=== PATIENT | female | born 2000 | race Caucasian/White ===

== ENCOUNTER 2023-01-26 08:09 | Emergency (ER) | payer OTHER, SELFPAY ==
[2023-01-26 08:22] VITALS: BP 132/76; PULSE 108; RESP 18; TEMP 36.6; O2SAT 100
--- NOTE | 2023-01-26 08:26 | ED.GENADULT ---
HPI - General Adult General Chief complaint: Eye Problems Stated complaint: [place] eye/sore throat Time Seen by Provider: 01/26/23 08:26 Source: patient Mode of arrival: ambulatory Limitations: no limitations History of Present Illness HPI narrative: 22-year-old female presented for complaint of bilateral eye redness and irritation worsening over the past 3 days. She states symptoms started in the left eye, she started having symptoms in the right eye yesterday. Endorses redness, itching, and yellow drainage. Also reports mild right eyelid swelling. She denies foreign body sensation, photophobia, vision changes, headache, nausea, fevers or chills. She endorses her throat feels scratchy. Also states her children were recently treated for pinkeye. Taking aleve for symptoms. Related Data Home Medications Medication Instructions Recorded Confirmed escitalopram oxalate 5 mg tablet 5 mg PO DAILY 01/26/23 01/26/23 lamotrigine 100 mg tablet 100 mg PO DAILY 01/26/23 01/26/23 Allergies Allergy/AdvReac Type Severity Reaction Status Date / Time morphine Allergy Intermediate Hives Verified 01/26/23 08:27 Review of Systems Review of Systems: CONSTITUTIONAL: Denies body aches, fever, chills EYES:Endorses redness, drainage to both eyes; Denies FB sensation, photophobia visual changes ENT: Denies rhinorrhea, congestion, or otalgia. CARDIOVASCULAR: Denies chest pain, palpitations RESPIRATORY: Denies cough or dyspnea. GASTROINTESTINAL: Denies abdominal pain, nausea, vomiting, or diarrhea. SKIN: Denies rash, itching, or wounds. MUSCULOSKELETAL: Denies back pain, joint pain, or myalgia. NEUROLOGIC: Denies headache, numbness, tingling, or weakness. All systems reviewed & are unremarkable except as noted in HPI and below PMFSH Past Medical History Medical History (Updated 01/26/23 @ 08:37 by Angelica Narayan APRN) No pertinent past medical history Comments At time of signature, I have reviewed and agree with nursing past medical, surgical, social and family history unless otherwise noted. Please see nursing chart for further information. There is no relevant family history pertinent to the presenting complaint Exam Narrative: GENERAL: Well-appearing HEAD: Normocephalic, atraumatic. EYES: bilateral conjunctival injection Right >Left, mild right upper eye lid swelling/redness, moderate purulent drainage. PERRLA, EOMI. Lid eversion showed no foreign body ENT: Mucous membranes pink and moist. No rhinorrhea. TMs normal bilaterally. Throat normal tonsils absent. Uvula midline. CHEST: Clear to auscultation. HEART: Regular rate and rhythm. ABDOMEN: Soft, nontender, nondistended SKIN: Warm, dry, no rash. Normal skin turgor. NEURO: Alert and oriented x3 PSYCH: Normal affect. Course Course Emergency Course: Patient is aware of diagnosis, understands and agrees to treatment plan. Anticipatory guidance given. Patient agrees to follow-up as directed and is aware of reasons to seek care at the emergency department. Portions of this record may have been created with voice recognition software Level of Care: Express Care Visit Vital Signs Vital signs: Vital Signs Temperature 97.8 F 01/26/23 08:22 Pulse Rate 108 H 01/26/23 08:22 Respiratory Rate 18 01/26/23 08:22 Blood Pressure 132/76 01/26/23 08:22 Pulse Oximetry 100 01/26/23 08:22 Oxygen Delivery Room Air 01/26/23 08:22 Temperature 97.8 F 01/26/23 08:22 Pulse Rate 108 H 01/26/23 08:22 Respiratory Rate 18 01/26/23 08:22 Blood Pressure 132/76 01/26/23 08:22 Pulse Oximetry 100 01/26/23 08:22 Oxygen Delivery Room Air 01/26/23 08:22 Medical Decision Making MDM Narrative Medical decision making narrative: Discussed physical exam findings. Advised supportive measures and signs/symptoms to go to the ER. Pt is appropriate for outpt treatment and f/u. Differential Diagnosis Differential Diagnosis: allergic
== END 2023-01-26 08:35 | disposition home or self-care (01) ==
PROVIDERS: Emergency Provider Nurse Practitioner Family; PCP Nurse Practitioner Family
DX: H10.9 Unspecified conjunctivitis (principal); F41.9 Anxiety disorder, unspecified; F31.9 Bipolar disorder, unspecified
CPT/HCPCS: 99213; G0463

== ENCOUNTER 2024-05-04 14:30 | Emergency (ER) | payer OTHER, SELFPAY ==
[2024-05-04 14:36] VITALS: BP 122/72; PULSE 94; RESP 18; TEMP 37.2; O2SAT 100
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
== END 2024-05-04 14:58 | disposition home or self-care (01) ==
PROVIDERS: Emergency Provider Registered Nurse; PCP Nurse Practitioner Family
DX: H60.331 Swimmer's ear, right ear (principal); F17.290 Nicotine dependence, other tobacco product, uncomplicated
CPT/HCPCS: 99213; G0463

== ENCOUNTER 2024-07-16 17:05 | Emergency (ER) | payer OTHER, SELFPAY ==
[2024-07-16 17:10] VITALS: BP 129/68; PULSE 88; RESP 20; TEMP 36.8; O2SAT 100
--- NOTE | 2024-07-16 17:36 | ED_ITS ---
HPI - Skin/Abscess/Foreign Bdy General Chief complaint: Skin/Abscess/Foreign Body Stated complaint: Rash lower back and arms Source: patient, RN notes reviewed and old records reviewed Mode of arrival: ambulatory Limitations: no limitations History of Present Illness HPI narrative: 24 year old female who presents to [facility] care with complaints red raised irregular spots on her back, down her arms and few areas on her forehead noted today which she reports are not itching. Patient reports that she went to hr grandmothers home and did some laundry there and did use new laundry soap. Patient reports that no one else in household has this rash, no new foods, medications, or any new bath soaps or lotions. Patient denies any difficulty with her breathing or with swallowing. MD complaint: rash Onset (ago): day(s) (today) Severity: mild Treatments prior to arrival: none Related Data Allergies Allergy/AdvReac Type Severity Reaction Status Date / Time morphine Allergy Intermediate Hives Verified 05/04/24 14:37 Review of Systems Review of Systems: CONSTITUTIONAL: Denies fever, chills, or sweats. CARDIOVASCULAR: Denies chest pain, palpitations, or edema. RESPIRATORY: Denies cough or dyspnea. SKIN: Reports red spots on back, down her arms and some on forehead which she noted today that are not itchy MUSCULOSKELETAL: Denies joint pain or myalgia. NEUROLOGIC: Denies headache, numbness, or weakness. All systems reviewed & are unremarkable except as noted in HPI and below PMFSH Past Medical History Medical History No pertinent past medical history Surgical History Surgical History History of appendectomy History of tonsillectomy and adenoidectomy Social History Social History Smoking status: Current every day smoker Tobacco type: e-cigarettes/vaping Alcohol intake: current Alcohol use details: social Substance use: current Substance use type: marijuana Gender identity (if verbalized by the patient): Female Comments At time of signature, agree with nursing past medical, surgical, social and family history. There is no relevant family history pertinent to the presenting complaint Exam Narrative: GENERAL: Well-appearing, well-nourished, and in no acute distress. HEAD: Normocephalic, atraumatic. EYES: PERRLA, conjunctivae clear, and EOMI. ENT: Mucous membranes moist. Oropharynx without edema, erythema or lesions. NECK: Supple. No lymphadenopathy CHEST: Clear to auscultation. No respiratory distress.SAO2 100% on room air HEART: Regular rate and rhythm. SKIN: Warm, dry.? red raised grouped irregular rash to her back, down her arms and few on forehead, no itching or any pain to areas, no vesicles or any pustule formation NEURO:? Alert and oriented x3. PSYCH: Normal mood and affect Course Course Emergency Course: Patient is aware of diagnosis, understands and agrees to treatment plan.? Anticipatory guidance given.? Patient agrees to follow-up as directed and is aware of reasons to seek care at the emergency department. Portions of this record may have been created with voice recognition software Level of Care: Express Care Visit Vital Signs Vital signs: Vital Signs Temperature 36.8 C 07/16/24 17:10 Pulse Rate 88 07/16/24 17:10 Respiratory Rate 20 07/16/24 17:10 Blood Pressure 129/68 07/16/24 17:10 Pulse Oximetry 100 07/16/24 17:10 Oxygen Delivery Room Air 07/16/24 17:10 Temperature 36.8 C 07/16/24 17:10 Pulse Rate 88 07/16/24 17:10 Respiratory Rate 20 07/16/24 17:10 Blood Pressure 129/68 07/16/24 17:10 Pulse Oximetry 100 07/16/24 17:10 Oxygen Delivery Room Air 07/16/24 17:10 Reviewed MDM - Skin/Abscess/Foreign Bdy MDM Narrative Medical decision making narrative: Does not appear at this time to be erythema multiforme, bullous, SJS, TEN; no evidence at this time to suggest RMSF, endocarditis or Lyme disease; patient looks well, nontoxic and is tolerating oral intake; no neurologic signs or symptoms; no headache, photophobia or neck pain; afebrile; appropriate for initial outpatient treatment; discussed the importance of follow-up, patient agrees; question, viral exanthema, contact dermatitis, allergic dermatitis, eczema, urticaria, [ xx ]. No soft palate or uvula edema, no tongue, lip edema or other mucosal involvement, no respiratory compromise, no stridor, no wheezing, no wheezing, no history of syncope, no hypotension, no nausea, vomiting, or diarrhea.? Instructed patient to go to nearest ER immediately for any worsening symptoms including but not limited to: fever, spreading rash, pain, sore throat, headache, dizziness, chest pain, trouble breathing, or any symptoms concerning to the patient. Differential Diagnosis Differential diagnosis: Likely cellulitis, eczema and contact dermatitis Medical Records Attestation: I reviewed the patient's medical records. Critical Care Time Critical Care Time Critical Care Time: No Discharge Plan Discharge Clinical Impression: Contact dermatitis Patient Disposition: Home, Self-Care Condition: Stable Instructions: Antibiotic Form, Contact Dermatitis (ED) Additional Instructions: Cleanse skin rash areas with liquid Dial soap and apply triamcinolone ointment twice daily never apply ointment to the face watch for increasing infection--redness, swelling, drainage Tylenol or ibuprofen any fever pain follow up with PCP in 7-10 days for a wound check recheck if develop fever, chills, increasing symptom Go to the ER if your symptoms become worse of if ANY new symptoms develop Benadryl orally for any itching Prednisone taper take as prescribed If your symptoms persist, change or worsen significantly before you can contact your personal physician then please, without delay, go to the emergency department for further evaluation. Follow-up with PCP in 7-10 days or sooner if needed Follow up with PCP soon in regards to your blood pressure which is elevated above threshold for referral. Blood pressure above 120/80 may indicate pre- hypertension. Minimal elevation systolic 129/68 Prescriptions: New triamcinolone acetonide 0.1 % ointment 1 applic topical BID Qty: 80 0RF Rx Instructions: never use this ointment to face prednisone 20 mg tablet 20 mg PO BID Qty: 10 0RF Rx Instructions: take am and early pm No Action ciprofloxacin-dexamethasone 0.3-0.1 % drops,suspension 4 drp RIGHT EAR BID 7 Days Qty: 7.5 0RF Follow-up/Referrals: Re,Maritza Shen APN [Primary Care Provider] - Time of Disposition: 17:41 Quality [place]indy Coma Scale Eyes: Open Verbal: Oriented and Alert Motor: Follows Commands [place] Coma Total Score: 15
== END 2024-07-16 17:42 | disposition home or self-care (01) ==
PROVIDERS: Emergency Provider Registered Nurse; PCP Nurse Practitioner Family
DX: T49.2X1A Poisoning by local astringents and local detergents, accidental (unintentional), initial encounter (principal); L25.3 Unspecified contact dermatitis due to other chemical products; F17.290 Nicotine dependence, other tobacco product, uncomplicated; F12.90 Cannabis use, unspecified, uncomplicated
CPT/HCPCS: 99213; G0463

== ENCOUNTER 2025-05-07 14:41 | Emergency (ER) | payer OTHER, SELFPAY ==
--- OUTSIDE RECORDS SUMMARY | 2025-05-07 14:45 | XMS_ITS | Clinical Summary ---
Author Organization [facility] Address [address] [place] [address] Care Team Providers Care Skidder Name Role Phone Maritza Griamldo NP Primary Care Provider + [phone] Zachery Laughlin MD Unavailable [phone] Allergies Active Allergy Reactions Criticality Noted Date Comments Bee Pollen Hives Medium 07/11/2023 Morphine Hives Medium 01/02/2019 Penicillins Rash Medium 07/11/2023 Medications acetaminophen 500 mg capsuleIndications :Fever,Pain Take 1 capsule (500 mg total) by mouth every 6 (six) hours as needed for pain 90 tablet 12/03/19 21 Active ibuprofen (ADVIL,MOTRIN) 600 mg tabletIndications: Cramps,Pain Take 1 tablet (600 mg total) by mouth every 6 (six) hours as needed for pain 90 tablet 12/03/19 21 Active lamoTRIgine (LaMICtal) 25 mg tablet Take 4 tablets (100 mg total) by mouth daily 10/14/19 23 Active escitalopram (LEXAPRO) 5 mg tablet Take 1 tablet (5 mg total) by mouth daily Active ondansetron ODT (ZOFRAN-ODT) 8 mg disintegrating tabletIndications: Prevention of Post-Operative Nausea and Vomiting Take 1 tablet (8 mg total) by mouth every 8 (eight) hours as needed for nausea or vomiting 12 tablet 1 08/04/20 23 Active Additional Information Patient not taking.Reported on 12/16/2023 norgestimate-ethin yl estradioL (ORTHO-CYCLEN) 0.25-35 mg-mcg per tablet Take 1 tablet by mouth daily 28 tablet 3 12/16/19 24 Active Active Problems Problem Noted Date Diagnosed Date Allergic rhinitis 07/11/2023 Anxiety 07/11/2023 Contact dermatitis 07/11/2023 Dysuria 07/11/2023 Habit tic 07/11/2023 Migraine 07/11/2023 Mild recurrent major depression 07/11/2023 Obesity 07/11/2023 Secondary hypertriglyceridemia 07/11/2023 Vitamin D deficiency 07/11/2023 Overview (07/11/2023): cont daily 2000 units replacement Vulvovaginitis 07/11/2023 Ganglion cyst of wrist, left 07/11/2023 Bipolar II disorder 10/13/2022 Continuous cannabis dependence 10/13/2022 Anxiety and depression 05/15/2020 Overview (09/12/2020): - Discontinued Prozac with - Reports stable mood - plan for continued monitoring Nicotine use disorder 11/24/2019 Overview (05/15/2020): Discontinued e-cig 04/2020 Assessment & Plan (11/24/2019 8:55 PM HEALTHCARE MANAGER): Patient vapes. The dangers of vaping was discussed with patient and patient was advised to quit. Patient states she is cutting back. Marijuana abuse 11/24/2019 Overview (05/15/2020): Daily use. Reports discontinued 12/2019. Assessment & Plan (11/24/2019 8:55 PM HEALTHCARE MANAGER): Patient uses marijuana daily. Atopic dermatitis of face 11/28/2018 Tinea corporis 07/24/2018 Thoracic back pain 07/13/2017 Ganglion cyst 09/07/2016 Resolved Problems Problem Noted Date Diagnosed Date Resolved Date care following vaginal delivery 12/02/2020 01/22/2021 Overview (12/05/2020): # ID: Afebrile. No signs/symptoms of infection. #COVID-19: Other - COVID recovered # Heme: Delivery EBL 400 mL. -Gestational thrombocytopenia- platelets 119. -Rh negative: Both babies Rh negative, no indication for rhogam. -Delayed PPH: Team hemorrhage called evening of 12/03. BSUS with organized clot/tissue pressure at uterine fundus. Taken to OR for suction D&C. EBL 1300 pre-op and intra-op. S/p hemabate x1 intraop. Total EBL this admission: 1700cc. Labs trend: Hgb 11.6->8.3>7.9, plts 127->76>128, fibrinogen 457->251>265, nl PT/PTT. Bleeding stable this, asx, UOP adequate. # CV/Pulm: Gestational hypertension - Blood pressures well controlled on no medications. Asymptomatic, denies GARCIA/RUQ pain/vision changes. CBC/CMP WNL, UPC WNL. Consented for home BP monitoring. # GI/: Tolerating PO. Voiding spontaneously and adequately. # Pain: Controlled with above regimen. # Post DVT prophylaxis: The patient has the following MAJOR risk factors PPH (EBL >/=1000) requiring blood transfusion or procedure (D&C or IR) and none and the following MINOR risk factors BMI 30-39 and multiple gestation . enoxaparin 40 mg daily ordered for VTE prophylaxis. # MOC: s/p nexplanon placement # MOF: Formula feeding # Disposition: Follow up task sent to [facility] scheduling pool.Desires discharge home today Encounter for induction of labor 12/01/2020 01/22/2021 Overview (12/01/2020): 1. Induction of labor for DiDiTIUP/gHTN: Continue OT per protocol. S/p AROM@1430 2. FWB: Continuous monitoring. tracing category I 3. ID: HIV negative. GBS negative. Membrane Status: AROm@1430. 4. Indications for UDS: none. Verbal consent obtained for UDS: Not indicated 5. MOF: Plans to breastfeed. 6. MOC: Desires Nexplanon 7. Pain management: Desires epidural PRN. Will notify Anesthesia when ready. 8. Post DVT prophylaxis: The patient has the following MAJOR risk factors none and the following MINOR risk factors BMI 30-39 and multiple gestation . enoxaparin 40 mg daily will be ordered for VTE prophylaxis . 9. COVID Test Status: COVID recovered from October 12. Kevan TIUP - 11/27 scan vertex/vertex. A EFW 2505(13%), B EFW 2990 (56%), 16.2% discordance 11. gHTN - dx 11/25. On no meds currently. CBC/CMP wnl, UPC 0.141. will CTM BP closely intrapartum 12. Anxiety/Depression - d/c'd prozac this . Mood stable, for PNBH PP 13. Rh negative - s/p 28 wk rhogam, for PP Rhogam 14. VZV NI - For PP varivax 15. Resolved IUGR - of twin A, 6% at anatomy & on all further scans Gestational hypertension, third trimester 11/27/2020 01/22/2021 Overview (11/27/2020): Diagnosed 11/25 with second mild range BP Keeping BP logs and emailing MFM for review Plan for weekly labs- next on Tuesday 2x/weekly testing Will plan for repeat growth tomorrow- MFM team to help arrange Benign gestational thrombocy topenia in third trimester 11/24/2020 01/22/2021 Overview (11/27/2020): 11/23 139k 11/24 133k 11/27 129K COVID-19 affecting in third trimester 10/17/2020 04/30/2021 Overview (10/17/2020): Positive test in the ED 10/17/20. Normal CXR. Supervision of high-risk pre gnancy, unspecified trimester 08/12/2020 01/22/2021 Overview (11/27/2020): [x] Full MFM Care; [] Red Team [x] Blue Team Referring Provider: Jumana Silveira [phone] [] or Medicare Insurance [x] Dating Criteria: LMP 03/17/20 ANTWON 12/22/20 [x] Labs: Rh [O-], Ab [negative], Rubella [immune], HIV [non-reactive], HepBSAg [non-reactive], RPR [non-reactive], GC/CT [negative/negative] [x] Genetic Screenin07/01/20 Carrier Screen: negative [x] CBC/Hgb 13.7/40.5/plt 167 [x] UCx: 05/15/20 negative [] Pap: needs [] LD ASA (if indicated) starting at 12 weeks: [] PNBHS referral (if indicated) 2nd Tri Labs: [x] Anatomy ultrasound: [x] CBC/1hr gtt at 24-28wks: on 09/29/20, CBC: 11.9/37.2/168, 1 hr gtt: 117 [x] Flu Shot (Jun-Sep): 08/15/2020 MS [x] Tdap (27-36wks): given 11/06/20 ms [x] Rhogam at 28 wks (if Rh neg):given on 09/29/20 3rd Tri Labs: [x] CBC [ 12.9/38.3/129K] /HIV [NR] /RPR [NR] [x] GBS: negative [x] COVID testing: Positive for Covid on 10/17/20 Counselling [] MOD: discussed with Dr. De Luna plan for IOL at 37 weeks in the setting of gHTN [x] Place of delivery: [facility] [x] MOC: nexplanon [x] Method of feeding: breast [x] Recreation Establishment Manager: [] PP Depression Discussed: Initial concern for poor growth 08/07/2020 01/22/2021 Overview (10/09/2020): Initial concern on 20 wk scan with twin A EFW at 6%. Subsequent scans AGA - continue serial growth ultrasounds Dichorionic diamniotic twin , antepartum 06/12/2020 01/22/2021 Overview (11/27/2020): - Previously counseled - Last growth 10/09: AGA x 2 - Plan for serial growth ultrasound - testing starting at 32 weeks - TOD: at 37 weeks in the setting of gHTN - MOD: current plan for IOL with repeat growth prior to IOL Rh negative 06/12/2020 01/22/2021 Overview (10/09/2020): S/p rhogam at 28 weeks Maternal varicella, non-immune 06/12/2020 01/22/2021 Overview (09/12/2020): - Varivax in the period Acute appendicitis 11/24/2019 0 Assessment & Plan (11/24/2019 8:45 PM HEALTHCARE MANAGER): Surgery is aware, will make patient NPO after midnight. Patient received Ancef and Flagyl at [facility] however patient became nauseous and vomited with Flagyl. Will change antibiotics to Unasyn. P.r.n. pain control. P.r.n. Zofran. Gentle hydration. Blood cultures and hCG were completed at [facility]. HCG was negative. Influenza A 11/24/2019 05/15/2020 Assessment & Plan (11/24/2019 8:44 PM HEALTHCARE MANAGER): Patient took 2 doses of Tamiflu. She does not wish to continue with Tamiflu at this time. Will continue with supportive care. Thrombocytopenia 11/24/2019 06/12/2020 Assessment & Plan (11/24/2019 8:44 PM HEALTHCARE MANAGER): No prior history of thrombocytopenia in the past. Suspect it is related to infection. Will continue to monitor. No signs of bleeding. Immunizations Immunization Administration Dates Next Due DTaP 01/20/2004, 0,1999,10/15,1999 DTaP 5 Pertussis 02/18/2002, 0,1999,10/15,1999 HPV, Quadrivalent 01/10/2015,09/04/2014 HPV9 10/01/2015 Hep A, Pediatric 05/30/2008,05/30/2007 Hep A, Unspecified 05/30/2008,05/30/2007 Hep B, Adolescent or Pediatric 1,04/04/2000,02/25/2000,05/22 Hep B, Unspecified 12/06/2000,04/04/2000, 000 HiB 08/22/2000, 0,1999,08/06 Hib (HbOC) 08/22/2000, 0,1999,08/06 IPV 02/19/2004, 4,1999,12/02,1999,1999 Influenza, Quadrivalent, Liv l Culture-based MDCK, Preservative Free, Antibiotic Free, Intramuscular 08/15/2020 Influenza, Quadrivalent, Spl it, Intramuscular 07/24/2018 Influenza, Trivalent, IM (MDV) 07/04/2012 MMR 02/19/2004, 4,02/18/2001,05/24 Meningococcal Conjugate (Menveo) 10/01/2015 Meningococcal MCV4P (Menactra) 01/13/2012 Pneumococcal Conjugate 7-Valent 01/31/2001,12/06 Tdap 01/17/2022,11/06/2020,01/22/2011 Varicella 12/05/2020,05/30/2007,01/31/2001 Surgical History Surgery Date Site/Laterality Comments TONSILLECTOMY/ADENOIDECTOMY 10/03/2006 - 10/02/2007 Bilateral TOENAIL EXCISION ingrown toenails LAPAROSCOPIC APPENDECTOMY 10/03/2019 - 10/02/2020 APPENDECTOMY DILATION AND CURETTAGE OF UTERUS 10/03/2020 - 10/02/2021 PPH - retained products of conception. GANGLION CYST EXCISION 10/03/2022 - 10/02/2023 Left Medical History Medical History Date Comments Anxiety and depression Discontin ued Prozac 04/2020 with . Previous use x 1.5 years. Trichomonas vaginitis 2021 Family History Medical History Relation Name Comments Hypertension Father Heart disease Mother Hypertension Mother Relation Name Status Comments Father Mother Social History Tobacco Use Types Packs/Day Years Used Date Smoking Tobacco: Every Day E-cigarettes Vaping Smokeless Tobacco: Never Tobacco Cessation:Ready to Q uit: Not Asked; Counseling Given: Not Answered Alcohol Use Standard Drinks/Week Comments Not Currently 0 (1 standard drink = 0.6 oz pur e alcohol) Social Connection and Isolat ion Panel [NHANES] Answer Date Recorded In a typical week, how many times do you talk on the phone with family, friends, or neighbors? More than three times a week 12/03/2020 Frequency of Social Gatherin gs with Friends and Family Not on file 12/03/2020 Attends Nondenominational Services Not on file 12/03 Active Member of Clubs or Organizations Not on f ile 12/03/2020 Attends Club or Organization Meetings Not on sosa e 12/03/2020 Are you , , di vorced, , never , or living with a partner? Never 12/03/2020 AUDIT-C Answer Date Recorded Q1: How often do you have a drink containing alc ohol? Monthly or less 08/04/2023 Q2: How many drinks containi ng alcohol do you have on a typical day when you are drinking? 3 or 4 08/04/2023 Q3: How often do you have si x or more drinks on one occasion? Never 08/04/2023 PHQ-2 Answer Date Recorded PHQ-2 Total Score (If total score is 3 or more points, staff should administer the PHQ-9) 0 11/27/2019 Hunger Vital Sign Answer Date Recorded Within the past 12 months, y ou worried that your food would run out before you got the money to buy more. Never true 12/04/19 21 Within the past 12 months, t he food you bought just didn't last and you didn't have money to get more. Never true 12/03/2020 Personal Safety Answer Date Recorded Have you ever been in or are you currently in a harmful physical or emotional relationship or is someone making you feel afraid or unsafe? Denies 08/04/2023 Comments No Sex and Gender Information Value Date Recorded Sex Assigned at Not on file Legal Sex Female 2:57 AM HEALTHCARE MANAGER Gender Identity Not on file Sexual Orientation Not on file Occupation Industry Job Start Date Job End Date Not on file Not on file Not on file Not on file Obstetrics History Para Term AB IAB SAB Ectopic Multiple Livin g Live Births 1 1 1 1 2 2 Date Outcome GA Total Labor Labor/2nd/3rd Weight Sex Type Anes PTL Fartun A1 A5 Name Clin 2020 Term 37w 0d 1h 18m 0h 54m/0h 24m 2.57 kg (5 lb 10.7 oz) F Vag-S pont Epidur al N Livin g 8 9 DAACO N,ONE GIRLT BISI siddiqi, Kathy Doshi MD Delivery Location:[facility] Main C ampus ([facility]) 2020 Term 37w 1d 1h 18m 1h 10m/0h 08m 3.06 kg (6 lb 11.9 oz) F Vag-F orcep s Epidur al N Livin g 8 9 DAACO N,TWO GIRLT BISI siddiqi, Kathy Doshi MD Delivery Location:[facility] Main C amp[facility] ([facility]) Comments 2020 - pitocin induction for di-di twins, GHTN. PPH s/p hemabate and D&C for retained POC. Total admission EBL 1700 cc. Last Filed Vital Signs Vital Sign Reading Time Taken Comments Blood Pressure 112/80 12/16/2023 2:59 PM CDT Pulse 74 08/04/2023 1:17 PM CDT Temperature 36.6 C (97.8 F) 08/04/2023 1:17 PM CDT Respiratory Rate 20 08/04/2023 1:17 PM CDT Oxygen Saturation 100% 08/04/2023 1:17 PM CDT Inhaled Oxygen Concentration - - Weight 75.8 kg (167 lb) 12/16/2023 2:59 PM CDT Height 162.6 cm (5' 4) 08/04/2023 9:05 AM CDT Body Mass Index 28.67 08/04/2023 9:05 AM CDT Plan of Treatment Health Maintenance Due Date Last Done Comments Pneumococcal vaccine <65 (1 of 1 - PPSV23) 2005 01/31/2001, 12/06/2000 Depression Screening 11/24/2020 11/24/2019 Cervical Cancer Screening 01/19/2022 01/19/2021 Regular Well Visit/Exam 18-64 02/26/2024 02/25/2023, 02/22/2022 Influenza Vaccine (#1) 2025 3, 08/20/2021, 08/15/2020, Additional history exists DTaP/Tdap/Td Vaccine (9 - Td or Tdap) 01/18/2032 01/17/2022, 11/06/2020, 01/22/2011, Additional history exists Hepatitis B Screening Completed 12/06/2000 , 12/06/2000, 04/04/2000, Additional history exists HPV Vaccines Completed 10/01/2015, 01/01, 09/04/2014 Varicella Vaccines Completed 12/05/2020, 0 05/30/2007, 01/31/2001 Hepatitis C Screening Completed 12/17/2022, 020 Procedures Procedure Name Priority Date/Time Associated Diagnosis Comments HEPATITIS C ANTIBODY Routine 12/17/2022 10:05 AM CDT Screening examination for venereal disease PAP AND HIGH RISK HPV, REFLEX TO GENOTYPING Routine 01/19/2021 8:53 AM CDT from Last 3 Months or Most Recently Relevant to Health Maintenance Results * Hepatitis C antibody (12/17/2022 10:05 AM CDT) Hep C Ab Nonreactive Nonreactive ALVAREZ ALEMAN Comment: Interpretive Data Nonreactive: Antibodies to HCV not detected. Does NOT exclude the possibility of recent exposure to HCV. Equivocal: Equivocal for HCV antibodies. Supplemental molecular testing will be automatically performed to determine infection status in accordance with current CDC screening recommendations. Reactive: Positive for HCV antibodies. This may represent current or past HCV infection. Supplemental molecular testing will be automatically performed to determine current infection status in accordance with current CDC screening recommendations. Interpretive data was last revised on 2019. Blood 12/17/2022 10:0 5 AM CDT 12/17/2022 2:07 PM CDT us Jumana Silveira MD LAB MICROBIOL OGY - GENERAL ORDERABLES Edited Result - Final ALVAREZ ALEMAN [id number] [address] [place] [address] * Pap and High Risk HPV, reflex to Genotyping (01/19/2021 8:53 AM CDT) Pap test 01/19/2021 8:53 AM CDT 01/19/2021 8:53 AM CDT Narrative 01/23/2021 3:18 PM CDT [facility] Department of Pathology [address] [place] [id number] Final Report Patient Name: URIEL CARDONA Address: [facility] [place] [address] Gender: F : 2000 (Age: 20) Service: Laboratory Location: Lab [facility] #: [id number] Patient Type: Ref Lab Taken: 01/19/2021 Received: 01/19/2021 Accessioned:: 01/20/2021 Reported: 01/23/2021 Physician(s): MD Jumana Woods MD Diagnosis: Source of Specimen: SCREENING THIN PREP IMAGED PAP w/ Reflex HPV Specimen Adequacy: - Satisfactory for evaluation; endocervical/transformation zone component present General Category: - Negative for intraepithelial lesion or malignancy JASON Marsh(ASCP) Report Electronically Reviewed and Signed Out By JASON Marsh(ASCP) 01/23/2021 15:18:36 Specimen(s) Received: A: SCREENING THIN PREP IMAGED PAP w/ Reflex HPV Clinical History: Menstrual History: The Pap test is a screening test used to aid in the detection of cervical cancer and its precursors. It should not be the sole means by which malignant and premalignant lesions are diagnosed. Both false negative and false positive results may occur. It also has poor sensitivity for the detection of endometrial lesions and should not be used to evaluate suspected endometrial abnormalities. For these reasons it is most important to obtain Pap tests at regular intervals. The performance characteristics of some immunohistochemical stains, fluorescence in-situ hybridization tests and immunophenotyping by flow cytometry cited in this report (if any) were determined by the Surgical Pathology Department at [facility] as part of an ongoing quality control program and in compliance with federally mandated regulations drawn from the Clinical Laboratory Improvement Act of 1988 (CLIA '88). Some of these tests rely on the use of analyte specific reagents and are subject to specific labeling requirements by the US Food and Drug Administration. Such diagnostic tests may only be performed in a facility that is certified by the Department of Health and Human Services as a high complexity laboratory under CLIA '88. The FDA has determined that such clearance or approval is not necessary. This test is used for clinical purposes. It should not be regarded as investigational or for research. Nevertheless, federal rules concerning the medical use of analyte specific reagents require that the following disclaimer be attached to the report: This test was developed and its performance characteristics determined by the Surgical Pathology Department [facility]. It has not been cleared or approved by the U. S. Food and Drug Administration. Jumana Silveira MD LAB CYTOLOGY ORDERABL ES Final Result from Last 3 Months or Most Recently Relevant to Health Maintenance Insurance [facility] Advance Directives For more information, please contact: [phone] * Full Code (Latest Code Status on File) Date Activated Date Inactivated Comments 12/02/2020 12:52 AM 12/05/2020 6:22 PM * Full Code Date Activated Date Inactivated Comments 12/01/2020 9:03 AM 12/02/2020 12:52 AM Full CPR in c ase of cardiopulmonary arrest * Full Code Date Activated Date Inactivated Comments 11/24/2019 8:43 PM 11/27/2019 6:41 PM Care Teams Skidder Relationship Specialty Start Date End Date Maritza Grimaldo NP [address] [place] [address] PCP - General 09/21/18 Zachery Laughlin MD [address] [place] [address] Surgeon General Surgery 11/27/19
--- OUTSIDE RECORDS SUMMARY | 2025-05-07 14:45 | XMS_ITS | Referral Summary ---
Author Organization [facility] Address [address] [place] [address] Care Team Providers Care Forensic Scientist Name Role Phone Maritza Grimaldo NP Primary Care Provider + [phone] Zachery Laughlin MD Unavailable [phone] Allergies Active Allergy Reactions Criticality Noted Date [...] 04/2020 Assessment & Plan (11/24/2019 8:55 PM [employer]ER): Patient vapes. The dangers of vaping was discussed with patient and patient was advised to quit. Patient states she is cutting back. Marijuana abuse 11/24/2019 Overview (05/15/2020): Daily use. Reports discontinued 12/2019. Assessment & Plan (11/24/2019 8:55 PM [employer]ER): Patient uses marijuana daily. Atopic dermatitis of [...] # Disposition: Follow up task sent to [facility] scheduling pool.Desires discharge home today Encounter [...] [x] Blue Team Referring Provider: Jumana Silveira [phone] [] or Medicare Insurance [x] Dating Criteria: [...] nexplanon [x] Method of feeding: breast [x] Assembly Line Inspector: [] PP Depression Discussed: Initial concern for [...] 0 Assessment & Plan (11/24/2019 8:45 PM [employer]ORER): Surgery is aware, will make patient NPO after midnight. Patient received Ancef and Flagyl at [facility] however patient became nauseous and vomited with Flagyl. Will change antibiotics to Unasyn. P.r.n. pain control. P.r.n. Zofran. Gentle hydration. Blood cultures and hCG were completed at [facility]. HCG was negative. Influenza A 11/24/2019 05/15/2020 Assessment & Plan (11/24/2019 8:44 PM [employer]ER): Patient took 2 doses of Tamiflu. She does not wish to continue with Tamiflu at this time. Will continue with supportive care. Thrombocytopenia 11/24/2019 06/12/2020 Assessment & Plan (11/24/2019 8:44 PM [employer]ER): No prior history of thrombocytopenia in the [...] Conjugate 7-Valent 01/31/2001,12/06 Tdap 01/17/2022,11/06/2020,01/22/2011 Varicella 12/05/2020,05/30/2007,01/31/2001 Social History Tobacco Use Types Packs/Day Years [...] and Family Not on file 12/03/2020 Attends [employer] Not on file 12/03 Active Member [...] on file Legal Sex Female 2:57 AM [employer] Gender Identity Not on file Sexual Orientation Not on file Occupation Industry Job Start Date Job End Date Not on file Not on file Not on file Not on file Last Filed Vital Signs Vital Sign Reading [...] 08/04/2023 9:05 AM CDT Plan of Treatment Not on file Procedures Procedure Name Priority Date/Time Associated Diagnosis [...] 5 AM CDT 12/17/2022 2:07 PM CDT Jumana Silveira MD LAB MICROBIOL OGY - GENERAL ORDERABLES Edited Result - Final [facility] [id number] [facility] Department [place] [address] * Pap and High Risk HPV, reflex to Genotyping (01/19/2021 8:53 AM CDT) Pap test 01/19/2021 8:53 AM CDT 01/19/2021 8:53 AM CDT Narrative 01/23/2021 3:18 PM CDT [facility] Department of Pathology [address] [place] [id number] Final Report Patient Name: TERRA CARDONA Address: [facility] [place] [address] Gender: F : 2000 (Age: 20) Service: Laboratory Location: Lab [facility] #: [id number] Patient Type: Ref Lab Taken: 01/19/2021 Received: [...] determined by the Surgical Pathology Department at [facility] as part of an ongoing quality assurance auditor program and in compliance with federally mandated [...] characteristics determined by the Surgical Pathology Department [facility]. It has not been cleared or approved by the U. S. Food and Drug Administration. Jumana Silveira MD LAB CYTOLOGY ORDERABL ES Final Result from Last 3 Months or Most Recently Relevant to Health Maintenance Insurance [facility] Member Subscriber Plan / Payer (Ef fective 2018-Present) Name:Terra Cardona Relation to Subscriber:Self Name:Terra Cardona Payer ID:[id number] (NAIC) Group ID:Not on file Type:MEDICAID RISK OTHER Address: [address] [place], [place] [id number] [place] [address] [facility] Advance Directives For more information, please contact: [phone] * Full Code (Latest Code Status on File) Date Activated Date Inactivated Comments 12/02/2020 12:52 AM 12/05/2020 6:22 PM * Full Code Date Activated Date Inactivated Comments 12/01/2020 9:03 AM 12/02/2020 12:52 AM Full CPR in c ase of cardiopulmonary arrest * Full Code Date Activated Date Inactivated Comments 11/24/2019 8:43 PM 11/27/2019 6:41 PM Care Teams Forensic Scientist Relationship Specialty Start Date End Date Maritza Grimaldo NP [address] [place] [address] PCP - General 09/21/18 Zachery Laughlin MD [address] [place] [address] Surgeon General Surgery 11/27/19
--- OUTSIDE RECORDS SUMMARY | 2025-05-07 14:45 | XMS_ITS | Clinical Summary ---
Author Organization [facility] Address [address] [place] [address] Phone Care Team Providers Care Twisting Frame Fixer Name Role Phone Maritza Grimaldo ROSALIND LARSON Primary Care Provider [phone] Allergies Active Allergy Reactions Criticality Noted Date Comments Morphine Hives 04/15/2019 Medications traMADol (ULTRAM) 50 MG Tablet Take 1 Tab by mouth every 6 hours as needed for Moderate or more severe pain. 10 Tab 9 Active Additional Information Patient not taking.Reported on 11/24/2019 ondansetron (ZOFRAN) 4 MG Tablet Take 1 Tab by mouth 3 times daily as needed for Nausea - 1st line. 10 Tab 9 Active Oseltamivir Phosphate (TAMIFLU PO) Take by mouth. Ac tive oseltamivir (TAMIFLU) 30 MG Capsule Take 75 mg by mouth 2 times daily. Active ofloxacin (FLOXIN) 0.3 % Solution Place 2 Drops in affected ear(s) 2 times daily. 4 Active bacitracin 500 UNIT/GM Ointment Apply 2 times daily. Application Site: Left arm 28 g 5 Active Active Problems No known active problems Encounters Date Type Department Care Team Description 04/06/2025 4:14 AM CDT - 04/06/2025 5:56 AM CDT Emergency [facility] Emergency [address] [place] [address] Donnie Ward MD Abrasion Discharge Disposition: Discharged to home or Selfcare 04/06/2025 Travel from Last 3 Months Immunizations Immunization Administration Dates Next Due TDAP Vaccine 01/17/2022 Social History Tobacco Use Types Packs/Day Years Used Date Smoking Tobacco: Former Cigarettes Smokeless Tobacco: Never Tobacco Cessation:Counseling Given: Not Answered Alcohol Use Standard Drinks/Week Comments Yes 0 (1 standard drink = 0.6 oz pur e alcohol) Comments No Sex and Gender Information Value Date Recorded Sex Assigned at Female 04/06/2025 4:20 AM CDT Legal Sex Female 8:34 PM CDT Gender Identity Female 04/06/2025 4:20 AM CDT Sexual Orientation Not on file Last Filed Vital Signs Vital Sign Reading Time Taken Comments Blood Pressure 132/83 04/06/2025 5:50 AM CDT Pulse 126 04/06/2025 5:50 AM CDT Temperature 37.1 C (98.8 F) 04/06/2025 4:18 AM CDT Respiratory Rate 18 04/06/2025 5:50 AM CDT Oxygen Saturation 99% 04/06/2025 4:30 AM CDT Inhaled Oxygen Concentration - - Weight 72.5 kg (159 lb 13.3 oz) 04/06/2025 4:18 AM CDT Height 161.3 cm (5' 3.5) 04/06/2025 4:18 AM CDT Body Mass Index 27.87 04/06/2025 4:18 AM CDT Plan of Treatment Health Maintenance Due Date Last Done Comments Hepatitis C Virus (HCV) Screening 2000 Pap Smear 2020 SARS-COV-2 Immunization ( season) 2024 Influenza Immunization (#1) 06/03/202507/04, 10/31/2023, 11/02/2022, Additional history exists Td Immunization Every 10 Years (Adults With 1 Tdap) 01/18/2032 01/17/2022, 11/06/2020, 01/22/2011 Respiratory Syncytial Virus (RSV) Immunization (Adult) (1 - 1-dose 75+ series) 2074 Hepatitis B Immunization Completed 001, 04/04/2000, 02/25/2000, Additional history exists Pneumococcal Immunization Combined Aged Out 01/31/2001, 12/06/2000 No longer eligibl e based on patient's age to complete this topic Human Papillomavirus (HPV) Immunization Completed 10/01/2015, 01/10/2015, 09/04/2014 Meningococcal Immunization (ACWY) Completed 10/01/2015, 01/13/2012 DTaP/Tdap/Td Immunization Discontinued 2021, 11/06/2020, 01/22/2011, Additional history exists Rotavirus Immunization Aged Out No lo nger eligible based on patient's age to complete this topic Procedures Procedure Name Priority Date/Time Associated Diagnosis Comments CT HEAD OR BRAIN WO CONTRAST Stat with Interpretation 04/06/2025 4:55 AM CDT XR ELBOW MINIMUM 3 VIEWS LEFT STAT 04/06/2025 4:55 AM CDT XR SHOULDER COMPLETE LEFT STAT 04/06/2025 4:55 AM CDT from Last 3 Months Results * CT HEAD OR BRAIN WO CONTRAST (04/06/2025 4:55 AM CDT) Anatomical Region Laterality Modality Head N/A Computed Tomogra phy 04/06/2025 5:33 AM CDT Impressions 04/06/2025 5:36 AM CDT IMPRESSION: 1. No acute intracranial findings. 2. Left frontal scalp laceration. 3. Small air-fluid level in the right maxillary sinus, nonspecific but which can be seen in the setting of acute sinusitis. Narrative 04/06/2025 5:36 AM CDT EXAM DESCRIPTION: CT HEAD OR BRAIN WO CONTRAST REASON FOR STUDY: Head trauma. TECHNIQUE: Axial images acquired through the brain without intravenous contrast. Images stored on PACS. Automated exposure control was used as a dose optimization technique for this examination. COMPARISON: 07/07/2016 FINDINGS: BRAIN: No hemorrhage, edema or mass effect. No recent infarct. . No CT evidence for recent infarct. Normal cerebral volume and ventricular size. No suspicious vascular hyperdensity. Unremarkable white matter. EXTRA-AXIAL SPACES: No fluid collections. No masses. CALVARIUM: No fracture. SINUSES/MASTOIDS: Mild bilateral visualized maxillary sinus mucosal thickening. Air-fluid level in the right maxillary sinus appear simple attenuation, nonspecific but which can be seen in the setting of acute sinusitis. Please correlate clinically. ORBITS: No significant abnormality. OTHER: There is a left frontal scalp laceration with small amount of soft tissue swelling and small focus of gas anterolateral to the left orbit. THIS IS AN ELECTRONICALLY VERIFIED FINAL REPORT 04/06/2025 5:33 AM - Electronically signed by New Pleitez M.D. MZ: MZ Report ID: [id number] Reading Location: [place] [address] Procedure Note New Pleitez MD - 04/06/2025 EXAM DESCRIPTION: CT HEAD OR BRAIN WO CONTRAST REASON FOR STUDY: Head trauma. TECHNIQUE: Axial images acquired through the brain without intravenous contrast. Images stored on PACS. Automated exposure control was used as a dose optimization technique for this examination. COMPARISON: 07/07/2016 FINDINGS: BRAIN: No hemorrhage, edema or mass effect. No recent infarct. . No CT evidence for recent infarct. Normal cerebral volume and ventricular size. No suspicious vascular hyperdensity. Unremarkable white matter. EXTRA-AXIAL SPACES: No fluid collections. No masses. CALVARIUM: No fracture. SINUSES/MASTOIDS: Mild bilateral visualized maxillary sinus mucosal thickening. Air-fluid level in the right maxillary sinus appear simple attenuation, nonspecific but which can be seen in the setting of acute sinusitis. Please correlate clinically. ORBITS: No significant abnormality. OTHER: There is a left frontal scalp laceration with small amount of soft tissue swelling and small focus of gas anterolateral to the left orbit. THIS IS AN ELECTRONICALLY VERIFIED FINAL REPORT 04/06/2025 5:33 AM - Electronically signed by New Pleitez M.D. MZ: MZ Report ID: [id number] Reading Location: [id number] IMPRESSION: 1. No acute intracranial findings. 2. Left frontal scalp laceration. 3. Small air-fluid level in the right maxillary sinus, nonspecific but which can be seen in the setting of acute sinusitis. us Donnie Ward MD IMG CT ORDERABLES Final R esult * XR ELBOW MINIMUM 3 VIEWS LEFT (04/06/2025 4:55 AM CDT) Anatomical Region Laterality Modality UPPER EXTREMITY, elbow Left Digital R adiography 04/06/2025 5:27 AM CDT Impressions 04/06/2025 5:30 AM CDT IMPRESSION: No acute osseous findings in the left elbow or left shoulder. Narrative 04/06/2025 5:30 AM CDT EXAM DESCRIPTION: XR ELBOW MINIMUM 3 VIEWS LEFT; XR SHOULDER COMPLETE LEFT REASON FOR STUDY: LUE trauma TECHNIQUE: 3 radiographic view(s) of the left elbow and four views of the left shoulder . COMPARISON: None available FINDINGS: Left elbow: Alignment is normal. The joint spaces are normal. No acute fracture or aggressive bone lesion is seen.. No joint effusion identified. No radiopaque foreign body is present Left shoulder: Visualized chest is unremarkable. No gross malalignment. The joint spaces appear normal. No acute fracture or aggressive bone lesion is seen. No radiopaque foreign body identified. THIS IS AN ELECTRONICALLY VERIFIED FINAL REPORT 04/06/2025 5:27 AM - Electronically signed by New Pleitez M.D. MZ: RONNIE Report ID: [id number] Reading Location: [id number] Procedure Note New Pleitez MD - 04/06/2025 EXAM DESCRIPTION: XR ELBOW MINIMUM 3 VIEWS LEFT; XR SHOULDER COMPLETE LEFT REASON FOR STUDY: LUE trauma TECHNIQUE: 3 radiographic view(s) of the left elbow and four views of the left shoulder . COMPARISON: None available FINDINGS: Left elbow: Alignment is normal. The joint spaces are normal. No acute fracture or aggressive bone lesion is seen.. No joint effusion identified. No radiopaque foreign body is present Left shoulder: Visualized chest is unremarkable. No gross malalignment. The joint spaces appear normal. No acute fracture or aggressive bone lesion is seen. No radiopaque foreign body identified. THIS IS AN ELECTRONICALLY VERIFIED FINAL REPORT 04/06/2025 5:27 AM - Electronically signed by New Pleitez M.D. MZ: MZ Report ID: [id number] Reading Location: [id number] IMPRESSION: No acute osseous findings in the left elbow or left shoulder. Donnie Ward MD IM DIAGNOSTIC ORDERABLES Final Result * XR SHOULDER COMPLETE LEFT (04/06/2025 4:55 AM CDT) Anatomical Region Laterality Modality UPPER EXTREMITY, shoulder Left Digita l Radiography 04/06/2025 5:27 AM CDT Impressions 04/06/2025 5:30 AM CDT IMPRESSION: No acute osseous findings in the left elbow or left shoulder. Narrative 04/06/2025 5:30 AM CDT EXAM DESCRIPTION: XR ELBOW MINIMUM 3 VIEWS LEFT; XR SHOULDER COMPLETE LEFT REASON FOR STUDY: LUE trauma TECHNIQUE: 3 radiographic view(s) of the left elbow and four views of the left shoulder . COMPARISON: None available FINDINGS: Left elbow: Alignment is normal. The joint spaces are normal. No acute fracture or aggressive bone lesion is seen.. No joint effusion identified. No radiopaque foreign body is present Left shoulder: Visualized chest is unremarkable. No gross malalignment. The joint spaces appear normal. No acute fracture or aggressive bone lesion is seen. No radiopaque foreign body identified. THIS IS AN ELECTRONICALLY VERIFIED FINAL REPORT 04/06/2025 5:27 AM - Electronically signed by New Pleitez M.D. MZ: MZ Report ID: [id number] Reading Location: [id number] Procedure Note New Pleitez MD - 04/06/2025 EXAM DESCRIPTION: XR ELBOW MINIMUM 3 VIEWS LEFT; XR SHOULDER COMPLETE LEFT REASON FOR STUDY: LUE trauma TECHNIQUE: 3 radiographic view(s) of the left elbow and four views of the left shoulder . COMPARISON: None available FINDINGS: Left elbow: Alignment is normal. The joint spaces are normal. No acute fracture or aggressive bone lesion is seen.. No joint effusion identified. No radiopaque foreign body is present Left shoulder: Visualized chest is unremarkable. No gross malalignment. The joint spaces appear normal. No acute fracture or aggressive bone lesion is seen. No radiopaque foreign body identified. THIS IS AN ELECTRONICALLY VERIFIED FINAL REPORT 04/06/2025 5:27 AM - Electronically signed by New Pleitez M.D. MZ: RONNIE Report ID: [id number] Reading Location: [id number] IMPRESSION: No acute osseous findings in the left elbow or left shoulder. Donnie Ward MD IMG DIAGNOSTIC ORDERABLES Final Result from Last 3 Months Insurance MEDICAID [employer]ICAID [employer] Care Teams Twisting Frame Fixer Relationship Specialty Start Date End Date Maritza Grimaldo APRN, LICENSED NUCLEAR OPERATOR [address] [place], [place] [id number] PCP - General Family Medicine 03/22/18
[2025-05-07 14:46] VITALS: BP 138/72; PULSE 108; RESP 16; TEMP 37.2; O2SAT 100
--- NOTE | 2025-05-07 14:48 | ED.URI ---
HPI - URI/Sore Throat General Chief Complaint: Upper Respiratory Infection Stated Complaint: throat/aches Time Seen by Provider: 05/07/25 14:49 History of Present Illness HPI Narrative: 24 y/o female presented for c/o sore throat, body aches, and not feeling well. Onset 3 days. Says the throat pain is improving and she feels better than she did yesterday overall. Taking Tylenol. sister had similar symptoms last week. Pt denies sob, wheezing, cough, nasal congestion, n/v/d/f/c. Related Data Home Medications ?Medication ?Instructions ?Recorded ?Confirmed ?Last Taken ?Type No Home Medications 05/07/25 Unknown History Allergies Allergy/AdvReac Type Severity Reaction Status Date / Time morphine Allergy Intermediate Hives Verified 05/07/25 14:49 Review of Systems Review of Systems: CONSTITUTIONAL: Reports body aches, denies fever, chills, or sweats. EYES: Denies visual changes, redness, or discharge. ENT: reports sore throat Denies rhinorrhea, congestion, or otalgia. CARDIOVASCULAR: Denies chest pain, palpitations, or edema. RESPIRATORY: Denies dyspnea. GASTROINTESTINAL: Denies abdominal pain, nausea, vomiting, or diarrhea. SKIN: Denies rash NEUROLOGIC: Denies headache PMFSH Past Medical History Medical History No pertinent past medical history Surgical History Surgical History History of appendectomy History of tonsillectomy and adenoidectomy Social History Social History Smoking status: Current every day smoker Tobacco type: e-cigarettes/vaping Alcohol intake: current Alcohol use details: social Substance use: current Substance use type: marijuana Gender identity (if verbalized by the patient): Female Exam Narrative: GENERAL: well-appearing, no acute distress. EYES: conjunctivae clear ENT: Mucous membranes moist. TM pearly conner with normal light reflex bilaterally; no tragal tenderness. Oropharynx not erythematous without lesions. Tonsils not enlarged and without exudate. No drooling, no hoarseness, no trismus, uvula midline. No tripod positioning, hot potato voice, or soft palate swelling. NECK: Supple. No lymphadenopathy CHEST: Clear to auscultation, breath sounds equal. HEART: Regular rate and rhythm. No murmur heard. SKIN: Warm, dry, no rash. NEURO: Alert and oriented x3. Course Course Emergency Course: Patient is aware of diagnosis, understands and agrees to treatment plan. Anticipatory guidance given. Patient agrees to follow-up as directed and is aware of reasons to seek care at the emergency department. Portions of this record may have been created with voice recognition software Level of Care: Express Care Visit MDM - URI/Sore Throat MDM Narrative Medical decision making narrative: discussed physical exam findings consistent with viral infection. Patient declined viral testing at this time. She states she needs a work note. Advise supportive treatments. Patient is appropriate for outpatient treatment and follow-up. Differential Diagnosis Differential diagnosis: Likely upper respiratory infection, viral infection and pharyngitis Discharge Plan Discharge Clinical Impression: Viral infection Patient Disposition: Home Condition: Stable Instructions: Antibiotic Form, Viral Syndrome (ED) Additional Instructions: Recommendations: Flonase spray and Zyrtec (or Claritin/Cecy) over the counter Cough syrup may cause drowsiness; avoid driving or take it at night time. Tylenol 1000mg every 8 hours as needed for pain Symptomatic treatment includes: rest, fluids, and increase humidity of the air at home. Follow up with your primary care provider in 1 week. Go to the ER for worsening symptoms or concerns. Patient Language: Pashto Prescriptions: No Action ciprofloxacin-dexamethasone 0.3-0.1 % drops,suspension 4 drp RIGHT EAR BID 7 Days Qty: 7.5 0RF triamcinolone acetonide 0.1 % ointment 1 applic topical BID Qty: 80 0RF Rx Instructions: never use this ointment to face prednisone 20 mg tablet 20 mg PO BID Qty: 10 0RF Rx Instructions: take am and early pm Follow-up/Referrals: Re,Maritza Shen APN [Primary Care Provider] - Stand Alone Forms: Work/School Release IP Time of Disposition: 14:59
== END 2025-05-07 15:03 | disposition home or self-care (01) ==
PROVIDERS: Emergency Provider Nurse Practitioner Family; PCP Nurse Practitioner Family
DX: B34.9 Viral infection, unspecified (principal); F17.290 Nicotine dependence, other tobacco product, uncomplicated
CPT/HCPCS: 99211; G0463